=== PATIENT | male | born 1975 | race Caucasian/White ===

== ENCOUNTER → 2020-06-13 | Day surgery (SDC) | payer OTHER ==
[2020-06-12 13:53] VITALS: BMI 28.5
[~2020-06-13] MED LIST: FLU VACC QS2020-21(6MOS UP)/PF 60 MCG/0.5 ML SYRINGE IM ONE; Lidocaine 1% PF 5 ML VIAL ONE; Sodium Bicarbonate 2.5 MEQ/5 ML VIAL ONE
[2020-06-13 13:19] VITALS: BP 132/72; TEMP 97.7
--- NOTE | 2020-06-13 13:56 | ULT ---
Ultrasound guided right thyroid nodule FNA INDICATION: Solid nodule the right thyroid gland Preprocedural ultrasound examination: There is a 2.3 x 2.7 x 3.8 cm solid hypervascular mass with sma ll punctate internal microcalcifications. Site overlying the right thyroid nodule was prepped and draped in usual sterile fashion. Buffered 1% lidocaine was administered to the overlying subcutaneous tissues. Under ultrasound guidance, 4 separate FNA samples were obtained of the nodule utilizing 25-gauge 1.5 inch needles. printing technician was on-site to gather the FNA samples as they were obtained . Patient tolerated procedure without difficulty or. Post procedure images demonstrates no significant intraparenchymal or periparenchymal hemorrhage. IMPRESSION: Successful ultrasound-guided right thyroid nodule FNA Transcribed Date/Time: 06/13/2020 2:15 PM
== END ==
LOC: ULT 12:25
PROVIDERS: ATTEND Otolaryngology Plastic Surgery within the Head & Neck
PROC: BG44ZZZ Ultrasonography of Thyroid Gland (ICD-10-PCS; principal; 2020-06-13)
PROC: 0GJK3ZZ Inspection of Thyroid Gland, Percutaneous Approach (ICD-10-PCS; principal; 2020-06-13)
DX: E04.1 Nontoxic single thyroid nodule (principal); Z79.899 Other long term (current) drug therapy
CPT/HCPCS: 60100; 76942; 88173

== ENCOUNTER 2020-09-24 12:31 | Outpatient (CLI) | payer OTHER ==
--- NOTE | 2020-09-24 14:05 | NM ---
NUCLEAR MEDICINE THYROID ABLATION THERAPY: HISTORY: Malignant neoplasm of thyroid gland. PROCEDURE: After discussing the risks, benefits, alternatives and radiation precaution issues with the patient, verbal and written consent was obtained for radioiodine ablation therapy. The patient verbalized understanding and was treated with 98.9 mCi Iodine 131 orally without complications.
== END 2020-09-24 12:32 | disposition home or self-care (01) ==
LOC: NM 12:31
PROVIDERS: ATTEND Internal Medicine Endocrinology, Diabetes & Metabolism
DX: C73 Malignant neoplasm of thyroid gland (principal)
CPT/HCPCS: 79005; A9517

== ENCOUNTER 2020-10-04 12:37 | Outpatient (CLI) | payer OTHER | END 2020-10-04 12:38 | disposition home or self-care (01) | LOC: NM 12:37 | PROVIDERS: ATTEND Internal Medicine Endocrinology, Diabetes & Metabolism | DX: C73 Malignant neoplasm of thyroid gland (principal) | CPT/HCPCS: 78018 ==

== ENCOUNTER → 2021-09-03 | Outpatient (CLI) | payer BC | LOC: PET 08:00 | PROVIDERS: ATTEND Internal Medicine Endocrinology, Diabetes & Metabolism | DX: C73 Malignant neoplasm of thyroid gland (principal); C77.1 Secondary and unspecified malignant neoplasm of intrathoracic lymph nodes; R91.1 Solitary pulmonary nodule | CPT/HCPCS: 78815; A9552 ==

== ENCOUNTER 2022-04-17 08:36 | Outpatient (CLI) | payer BC | END 2022-04-17 08:37 | disposition home or self-care (01) | LOC: LABBT 08:36 | PROVIDERS: ATTEND Neurological Surgery | DX: M43.16 Spondylolisthesis, lumbar region (principal); Z20.822 Contact with and (suspected) exposure to COVID-19 | CPT/HCPCS: 87811 ==

== ENCOUNTER 2023-03-05 08:40 | Outpatient (CLI) | payer BC | END 2023-03-05 08:41 | disposition home or self-care (01) | LOC: RAD 08:40 | PROVIDERS: ATTEND Neurological Surgery | DX: S22.058A Other fracture of T5-T6 vertebra, initial encounter for closed fracture (principal) | CPT/HCPCS: 72070 ==

== ENCOUNTER 2023-03-18 11:09 | Outpatient (CLI) | payer BC | END 2023-03-18 11:10 | disposition home or self-care (01) | LOC: BICCT 11:09 | PROVIDERS: ATTEND Neurological Surgery | DX: S22.058A Other fracture of T5-T6 vertebra, initial encounter for closed fracture (principal) | CPT/HCPCS: 72128 ==